=== PATIENT | female | born 1955 | race African-American/Black ===

== ENCOUNTER 2018-07-02 11:46 | Emergency (ER) | payer OTHER ==
[~2018-07-02] VITALS: Ht 165.1 cm; Wt 95.3 kg
[~2018-07-02 11:46] MED LIST: ALBUTEROL SULF8.5 GM INH; FLUCONAZOLE150 MG ORAL; LEVAQUIN750 MG ORAL
[2018-07-02 11:58] VITALS: BP 161/101
[2018-07-02] MEDS ORDERED: ASPIR 8181 MG ORAL (12:07)
[2018-07-02] MEDS ORDERED: LEVOTHYROXINE75 MCG ORAL (12:07)
--- NOTE | 2018-07-02 12:20 | NUR ---
ED Nurse Note: PT. WALKED IN TO ED. AAOX4. AMBULATORY WITH UNSTEADY GAIT.. PER PT. SHE FELL YESTERDAY INSIDE THE BUS. DENIES LOC BUT FELT DIZZY EVER SINCE.
--- NOTE | 2018-07-02 12:32 | NUR ---
ED Nurse Note: PT WENT TO MRI
--- NOTE | 2018-07-02 13:40 | Emergency Room Report ---
History of Present Illness General Chief Complaint: Multiple Trauma/Fall Source: Patient, Medical Record Present Illness HPI The patient states that she [place] the [place]. She states the floor was wet and slippery and she fell backwards. She states at the time she felt fine. However, over the past day she has developed soreness in her neck and upper back. She states she is also had intermittent episodes of light headedness. She is also had intermittent headache. She denies nausea or vomiting. She denies chest pain or shortness of breath. She denies abdominal pain. She denies any other musculoskeletal pain. She has no other complaints. Allergies: Coded Allergies: No Known Allergies (Unverified , 12/16/12) Patient History Past Medical History: see triage record, HTN Social History: Denies: smoking, alcohol use, drug use Reviewed Nursing Documentation: PMH: Agreed; PSxH: Agreed Nursing Documentation-PMH Hx Hypertension: Yes - thyroid problem Review of Systems All Other Systems: negative except mentioned in HPI Physical Exam Vital Signs Date Time Temp Pulse Resp B/P (MAP) Pulse Ox O2 Delivery O2 Flow Rate FiO2 07/02/18 11:58 97.9 59 18 161/101 98 Room Air Sp02 EP Interpretation: reviewed, normal General Appearance: no apparent distress, alert, GCS 15, non-toxic Head: normocephalic, atraumatic Eyes: bilateral eye normal inspection, bilateral eye PERRL ENT: hearing grossly normal, normal pharynx, no angioedema, normal voice Neck: full range of motion, supple/symm/no masses Respiratory: chest non-tender, lungs clear, normal breath sounds, no respiratory distress, no retraction, no accessory muscle use, speaking full sentences Cardiovascular #1: regular rate, rhythm, no edema Gastrointestinal: normal bowel sounds, non tender, soft, non-distended, no guarding, no rebound Rectal: deferred Musculoskeletal: back normal, gait/station normal, normal range of motion, non- tender Neurologic: alert, oriented x3, responsive, motor strength/tone normal, sensory intact, speech normal Psychiatric: judgement/insight normal, memory normal, mood/affect normal, no suicidal/homicidal ideation Skin: normal color, no rash, warm/dry, well hydrated Medical Decision Making Diagnostic Impression: Primary Impression: Neck strain Additional Impression: Closed head injury ER Course This patient fell from standing and hit her head. There are no red flags on physical exam that would make me concerned for C-spine fracture, intrathoracic or intra-abdominal injury, L-spine fracture, intracranial bleed, or musculoskeletal fracture. Given the patient's age and episodes of lightheadedness, I did obtain a CT of the head and cervical spine which showed no acute findings. The patient has a clinical presentation consistent with a muscle strain, spasm. The patient was given supportive care instructions. The patient should only require anti-inflammatories and mild muscle relaxant. Patient was instructed that these symptoms will likely worsen initially and then gradually improve. Return precautions and followup instructions are given. Last Vital Signs Date Time Temp Pulse Resp B/P (MAP) Pulse Ox O2 Delivery O2 Flow Rate FiO2 07/02/18 11:58 97.9 59 18 161/101 98 Room Air Status: improved Disposition: HOME, SELF-CARE Condition: Improved Referrals: NON PHYSICIAN (PCP) Sadie German DO Jul 02, 2018 13:40
--- NOTE | 2018-07-02 13:54 | Diagnostic Imaging Report ---
Indication: Headache and head trauma Technique: Contiguous 5 mm thick transaxial imaging of the head obtained in a Siemens Sensation [address] scanner. Soft tissue and bone windows generated. Automatic Exposure Control was utilized. Total Dose length Product (DLP): 1575.[address] Dose Index Volume (CTDIvol): 70.38,11.53 mGy Comparison: none Findings: The size and configuration of the cortical sulci, basal cisterns, and ventricles are within normal limits for age. There is no mass effect, midline shift, or edema identified. There is no evidence of acute hemorrhage or abnormal intra-axial or extra-axial fluid collections. The bones and soft tissues are unremarkable. Impression: No mass effect, edema or acute bleed. The CT scanner at [facility] is accredited by the [employer] and the scans are performed using dose optimization techniques as appropriate to a performed exam including Automatic Exposure control.
--- NOTE | 2018-07-02 14:02 | Diagnostic Imaging Report ---
Indication: Neck pain. Technique: Continuous helical imaging of the cervical spine was obtained transaxially from the skull base to the upper thoracic spine. 2-D coronal and sagittal reformatted images were obtained. Automatic Exposure Control was utilized. Total Dose length Product (DLP): 1575.[address] Dose Index Volume (CTDIvol): 70.38,11.53 mGy Comparison: None Findings: There is no acute fracture or malalignment identified. There is no soft tissue swelling identified. 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 Some of the intervertebral discs show narrowing and osteophytes. Impression: No acute injury Moderate spondylosis The CT scanner at [facility] is accredited by the [employer] and the scans are performed using dose optimization techniques as appropriate to a performed exam including Automatic Exposure control.
[2018-07-02] MEDS ORDERED: CYCLOBENZAPRINE10 MG ORAL (14:15)
[2018-07-02] MEDS ORDERED: ACETAMINOPHEN500 M3 ORAL (14:15)
[2018-07-02 14:30] VITALS: BP 124/68
--- NOTE | 2018-07-02 14:30 | NUR ---
ED Nurse Note: Pt was cleared to be discharged by ERMD in stable condition. CT came out negative and she was informed ERMD. Pt received discharge instruction and pharmacy information that prescriptions were sent. Pt verbalized understanding. Pt ambulated to be discharged. ID band removed.
== END 2018-07-02 14:30 | disposition home or self-care (01) ==
LOC: EMR 12:25
DX: S16.1XXA Strain of muscle, fascia and tendon at neck level, initial encounter (principal); S09.8XXA Other specified injuries of head, initial encounter; W01.0XXA Fall on same level from slipping, tripping and stumbling without subsequent striking against object, initial encounter; Y92.811 Bus as the place of occurrence of the external cause; M47.812 Spondylosis without myelopathy or radiculopathy, cervical region
CPT/HCPCS: 70450; 72125; 99284

== ENCOUNTER 2019-01-11 11:47 | Emergency (ER) | payer OTHER ==
[~2019-01-11] VITALS: Ht 165.1 cm; Wt 90.7 kg
[~2019-01-11 11:47] MED LIST changes: +ACETAMINOPHEN500 M3 ORAL; +ASPIR 8181 MG ORAL; +CYCLOBENZAPRINE10 MG ORAL; +LEVOTHYROXINE75 MCG ORAL
[2019-01-11 12:20] VITALS: BP 163/82
--- NOTE | 2019-01-11 12:20 | NUR ---
ED Nurse Note: pt walked in due to rash on hef upper chest, denies pain. pt stated it started a month ago and got worse when she puts hydrocortisone. will continue to monitor
--- NOTE | 2019-01-11 12:45 | Emergency Room Report ---
History of Present Illness General Chief Complaint: Skin Rash/Abscess Source: Medical Record Present Illness HPI 63 YO Female presents to the ED c/o itchy rash on and off x 3 weeks. Rash was aggravated after application of OTC cortisone 10 ( hydrocortisone 1%) cream. 2/ 10 in severity itching. Denies pain. Pt. reports localized only to upper anterior chest just below the neck. Pt. denies fevers, chills or swollen tender lymph nodes. Denies lesions/rashes elsewhere on the body. Denies new medications or body washes or creams. Denies swelling of the lips, tongue , throat or airway. Denies wheezing, or shortness of breath. Denies recent travel , recent illness or ill contacts. denies blisters, oral lesions, or sloughing of the skin. Allergies: Coded Allergies: PENICILLINS (Verified Allergy, Unknown, 01/11/19) SULFA (SULFONAMIDE ANTIBIOTICS) (Verified Allergy, Unknown, 01/11/19) Patient History Past Medical History: see triage record Past Surgical History: none Pertinent Family History: none Immunizations: UTD Reviewed Nursing Documentation: PMH: Agreed; PSxH: Agreed Nursing Documentation-PMH Past Medical History: No History, Except For Hx Hypertension: Yes - thyroid problem Review of Systems All Other Systems: negative except mentioned in HPI Physical Exam Vital Signs Date Time Temp Pulse Resp B/P (MAP) Pulse Ox O2 Delivery O2 Flow Rate FiO2 01/11/19 11:57 97.9 57 18 163/82 (109) 97 Room Air Sp02 EP Interpretation: reviewed, normal General Appearance: no apparent distress, alert, GCS 15, non-toxic Head: normocephalic, atraumatic Eyes: bilateral eye normal inspection, bilateral eye PERRL ENT: hearing grossly normal, normal voice Neck: full range of motion Respiratory: chest non-tender, lungs clear, normal breath sounds, no wheezing, speaking full sentences Cardiovascular #1: regular rate, rhythm, normal capillary refill Cardiovascular #2: 0 carotid (R), 0 carotid (L), 0 radial (R), 0 radial (L), 0 femoral (R), 0 femoral (L), 0 dorsalis pedis (R), 0 dorsalis pedis (L) Musculoskeletal: back normal, gait/station normal, normal range of motion, non- tender Neurologic: alert, oriented x3, responsive, motor strength/tone normal, sensory intact, speech normal, grossly normal Psychiatric: judgement/insight normal Skin: rash - indurated plaques with some hypopigmentation, no appreaciable surrounding erythema or warmth. no blisters or vesicles. no crusting or d/c. Lymphatic: no adenopathy Medical Decision Making PA Attestation Dr. Wang is my supervising Physician whom patient management has been discussed with. Diagnostic Impression: Primary Impression: Rash and other nonspecific skin eruption ER Course 63 YO Female presents to the ED c/o itchy rash on and off x 3 weeks. Rash was aggravated after application of OTC cortisone 10 ( hydrocortisone 1%) cream. 2/ 10 in severity itching. Denies pain. Pt. reports localized only to upper anterior chest just below the neck. Pt. denies fevers, chills or swollen tender lymph nodes. Denies lesions/rashes elsewhere on the body. Denies new medications or body washes or creams. Denies swelling of the lips, tongue , throat or airway. Denies wheezing, or shortness of breath. Denies recent travel , recent illness or ill contacts. denies blisters, oral lesions, or sloughing of the skin. Ddx considered but are not limited to cellulitis, scabies, shingles, varicella, dermatitis, urticaria, eczema, tinea, viral exanthem, SJS Vital signs: are WNL, pt. is afebrile H&PE are most consistent with Contact dermatitis vs. secondary fungal infection. ORDERS: none required at this time, the diagnosis is clinical ED INTERVENTIONS: None required at this time. DISCHARGE: At this time pt. is stable for d/c to home. Will provide printed patient care instructions, and any necessary prescriptions. Care plan and follow up instructions have been discussed with the patient prior to discharge. Last Vital Signs Date Time Temp Pulse Resp B/P (MAP) Pulse Ox O2 Delivery O2 Flow Rate FiO2 01/11/19 12:20 97.9 57 18 163/82 97 Room Air Disposition: HOME, SELF-CARE Condition: Stable Referrals: Malu ESTRADAREFERRING (PCP) Patient Instructions: Rash Additional Instructions: Take medications as directed. Follow up with a Primary Care Provider in 3-5 days for DERMATOLOGY REFERRAL , even if your symptoms have resolved. --Please review list of primary care clinics, if you do not already have a primary care provider Return sooner to ED if new symptoms occur, or current symptoms become worse. - Please note that this Emergency Department Report was dictated using [employer] spring encaser technology software, occasionally this can lead to erroneous entry secondary to interpretation by the dictation equipment. Brenda Segundo Jan 11, 2019 12:45
[2019-01-11] MEDS ORDERED: BENADRYL ITCH28.3 GM TP (12:51)
[2019-01-11] MEDS ORDERED: NIZORAL 2% C1 APPLIC TOPIC (12:51)
[2019-01-11] MEDS ORDERED: KENALOG 0.025%15 GM APPLIC (12:51)
[2019-01-11 13:01] VITALS: BP 139/78
--- NOTE | 2019-01-11 13:01 | NUR ---
ER DISCHARGE NOTE: Patient is cleared to be discharged per ERMD, pt is aox4, on room air, with stable vital signs. pt was given dc and prescription instructions, pt was able to verbalize understanding, pt id band removed without complications. pt is able to ambulate with steady gait. pt took all belongings.
== END 2019-01-11 13:01 | disposition home or self-care (01) ==
LOC: EMR 12:24
DX: R21 Rash and other nonspecific skin eruption (principal); E07.9 Disorder of thyroid, unspecified; Z88.0 Allergy status to penicillin; Z88.2 Allergy status to sulfonamides
CPT/HCPCS: 99281

== ENCOUNTER 2019-05-01 03:16 | Emergency (ER) | payer OTHER ==
[~2019-05-01] VITALS: Ht 165.1 cm; Wt 86.2 kg
[~2019-05-01 03:16] MED LIST changes: +BENADRYL ITCH28.3 GM TP; +KENALOG 0.025%15 GM APPLIC; +NIZORAL 2% C1 APPLIC TOPIC
[2019-05-01 03:33] VITALS: BP 157/86
--- NOTE | 2019-05-01 03:33 | NUR ---
ED Nurse Note: Patient walked in to ER from home c/o right shoulder pain x 2 days ago due to pushing adn pulling shopping cart. Stated that she fell x2 weeks ago. Took OTC medication but doesnt alleviate the pain. No SOB. Afebrile. VSS.
--- NOTE | 2019-05-01 03:50 | Emergency Room Report ---
History of Present Illness General Chief Complaint: Upper Extremity Injury Present Illness HPI She is a 63-year-old female who presents after increased right-sided shoulder pain. Patient has pain worse with movement. She reports having similar symptoms in the past to the opposite shoulder. Patient is right-hand dominant. She states that she been having increased pain after increased use of her upper extremity and had been using increased amounts of weight. She reports having pain for 2 days. This did not change with Naprosyn. She denies any prior history of recent trauma. Denies any numbness to her hands. Allergies: Coded Allergies: PENICILLINS (Verified Allergy, Unknown, 01/11/19) SULFA (SULFONAMIDE ANTIBIOTICS) (Verified Allergy, Unknown, 01/11/19) Patient History Past Medical History: see triage record Now: No Reviewed Nursing Documentation: PMH: Agreed; PSxH: Agreed Nursing Documentation-PMH Hx Hypertension: Yes - thyroid problem Review of Systems All Other Systems: negative except mentioned in HPI Physical Exam Vital Signs Date Time Temp Pulse Resp B/P (MAP) Pulse Ox O2 Delivery O2 Flow Rate FiO2 05/01/19 03:31 98.2 65 18 157/86 (109) 96 Room Air General Appearance: no apparent distress, alert, GCS 15, obese, Chronically Ill Head: normocephalic, atraumatic ENT: hearing grossly normal, normal voice Neck: full range of motion, supple Respiratory: lungs clear, normal breath sounds, no respiratory distress, speaking full sentences Cardiovascular #1: normal inspection, regular rate, rhythm Gastrointestinal: normal inspection Musculoskeletal: decreased range of mation, other - no erythema Neurologic: normal inspection, alert, oriented x3, responsive Psychiatric: mood/affect normal Skin: no rash Medical Decision Making Diagnostic Impression: Primary Impression: Rotator cuff disorder ER Course Patient presented for right upper extremity pain. Differential diagnosis include was not limited to dislocation, contusion, rotator cuff tendinitis, infected joint among others. Patient has a benign exam and does not appear to require laboratory testing at this time. X-ray imaging of the shoulder was ordered due to patient's significant discomfort. X-ray imaging showed calcific tendinitis without evident acute fracture. EKG was performed due to patient's complaint of some chest wall discomfort. This does not show any evidence of acute ischemic changes. Patient is advised to follow-up with her primary care physician for reevaluation and physical therapy. She was advised to return if worse. EKG Diagnostic Results Rate: normal - 66 Rhythm: NSR ST Segments: no acute changes Last Vital Signs Date Time Temp Pulse Resp B/P (MAP) Pulse Ox O2 Delivery O2 Flow Rate FiO2 05/01/19 03:31 98.2 65 18 157/86 (109) 96 Room Air Status: improved Disposition: HOME, SELF-CARE Condition: Stable Scripts Diclofenac Sodium (VOLTAREN) 100 Gm Gel..gram. 5 GM TP TWICE A DAY for pain, #100 GM Prov: Júnior Wang MD 05/01/19 Júnior Wang MD May 01, 2019 03:50
[2019-05-01] MEDS ORDERED: HYDROcodone/Acetamin 5/325 tab ORAL ONE (04:00)
--- NOTE | 2019-05-01 04:07 | NUR ---
ED Nurse Note: Xray at bedside.
[2019-05-01] MEDS ORDERED: VOLTAREN100 G1 TP ×3 (04:34→04:58)
[2019-05-01 05:00] VITALS: BP 157/86
--- NOTE | 2019-05-01 05:00 | NUR ---
ER Nurse Note: Patient seen, treated, medically cleared to be discharged per ERMD. Discharge instructions and prescriptons given with repeat verbalization by pt. Instructed pt to follow up with primary care physican within one week. Pt is aox4, on room air, with stable vital signs. ID band removed. Pt ambulatory; left with all belongings.
--- NOTE | 2019-05-01 05:36 | Diagnostic Imaging Report ---
EXAM: XR Right Shoulder Complete, 2 or More Views CLINICAL HISTORY: PAIN TECHNIQUE: Two or more views of the right shoulder. COMPARISON: none FINDINGS: Bones joints: No fracture or dislocation. No aggressive appearing osseous lesions.. Soft tissues: Calcifications are present along the margin of the humeral head laterally, suggesting possible calcific tendinopathy of the rotator cuff. IMPRESSION: Possible calcific tendinopathy of the right rotator cuff. No fracture or dislocation shown.
== END 2019-05-01 05:00 | disposition home or self-care (01) ==
LOC: EMR 03:55
DX: M75.101 Unspecified rotator cuff tear or rupture of right shoulder, not specified as traumatic (principal); Z88.0 Allergy status to penicillin; Z88.2 Allergy status to sulfonamides; I10 Essential (primary) hypertension
CPT/HCPCS: 73030; 93005; Z7502; 99283